=== PATIENT | male | born 1985 | race Caucasian/White ===

== ENCOUNTER 2017-10-26 21:54 | Observation (INO) ==
--- NOTE | 2017-10-26 22:37 | Emergency Department Note ---
Addendum entered and electronically signed by Sera Smalls DO 10/27/17 00:10: Due to the symptomatic PVCs and possibility of prolonged QT, I gave the patient 2 g of magnesium. Original Note: Disposition Clinical Impression: Palpitations, PVC (premature ventricular contraction), Prolonged Q-T interval on ECG Disposition: Admitted As Inpatient Condition: Good Time of Disposition: 00:09 Arrhythmia/Palpitations HPI - General Chief Complaint: ED Arrhythmia/Palpitations Stated Complaint: palpitations Time Seen by Provider: 10/26/17 22:04 Source: patient Limitations: no limitations Nursing Notes Reviewed: Yes Vital Signs Reviewed: Yes - History of Present Illness HPI Narrative: Patient is a 32-year-old male who presents to [facility] ED with a chief complaint of palpitations. States he has felt this over the last few days approximately 50-60 times today. States he has had this in the past but only occasionally. States he did recently undergo alcohol detoxification and has been exercising more to lose weight and limiting his calorie intake. Also states he was recently started on Seroquel and Buspar. Denies any nausea, vomiting, fever or chills. No chest pain or difficulty breathing. No abdominal pain, problems with urination or bowel movements. Pt Subjective Complaint: palpitations Onset (ago): day(s) Duration: intermittent Severity: moderate Context: occurred during rest, occurred during exertion Associated symptoms: Reports: denies other symptoms. Denies: chest pain, shortness of breath, syncope, nausea, vomiting, cough - Related Data Home Medications Medication Instructions Recorded Confirmed Lisinopril [Zestril] 40 mg PO DAILY 10/26/16 10/27/17 Atorvastatin [Lipitor] 40 mg PO DAILY 10/26/17 10/27/17 Buspirone HCl [Buspar] 15 mg PO PRN PRN 10/26/17 10/27/17 Quetiapine Fumarate [Seroquel] 100 mg PO HS 10/26/17 10/27/17 Allergies Allergy/AdvReac Type Severity Reaction Status Date / Time Erythromycin Base Allergy Hives Verified 10/26/17 19:07 All systems ED: reviewed and negative except as stated. Past Medical History - Past Medical History Attestation: Yes The following information was validated with the patient. Source: patient Medical history: Reports: hyperlipidemia, hypertension Psychiatric history: Reports: anxiety - Social History Smoking Status: Current every day smoker Smokeless Tobacco Status: No Alcohol use: Reports: none Drug use: Reports: none Physical Exam - General Limitations: no limitations General appearance: alert - Head Head exam: atraumatic, normocephalic, normal inspection - Eye Eye exam: Present: normal appearance, EOMI - ENT ENT exam: normal exam, normal oropharynx, mucous membranes moist - Neck Neck exam: Present: normal inspection, full ROM, trachea midline - Chest Chest inspection: Present: normal inspection, symmetric chest wall rise - Respiratory Respiratory exam: Present: normal lung sounds bilaterally - Cardiovascular Cardiovascular exam: Present: regular rate, normal rhythm, normal heart sounds - Abdominal Exam Abdominal exam: Present: soft, Non-Tender. Absent: tenderness, distention, guarding, rebound, rigidity - Extremities Exam Extremities exam: Present: normal inspection, full ROM. Absent: tenderness, pedal edema - Back Exam Back exam: Present: normal inspection, full ROM. Absent: tenderness - Neurological Exam Neurological exam: Present: alert, oriented X3 - Psychiatric Psychiatric exam: Present: normal affect, normal mood - Skin Skin exam: Present: warm, dry, intact, normal color Course Course Narrative: Patient seen and examined. Palpitations. Patient has PVCs in accordance with these palpitations that he is feeling. Since he has had dietary changes, we will go ahead and order some lab work. EKG and chest x-ray were done at the urgent care. Repeat EKG here shows no changes. - Reevaluation(s) Reevaluation #1: Lab work appears unremarkable. The EKG did show some signs of prolonged QT. This may be involving the UA, however the QTC is 495 when calculated out. I discussed these concerns with the sr. manager corporate communications Dr. Neal. Recommends admission for cardiac monitoring and cessation of the Seroquel. States that they can be consulted by the hospitalist if needed. I discussed with hospitalist Dr. Pena who has accepted patient for admission. Time: 00:08 Vital Signs Temperature 98.0 F 10/26/17 21:58 Pulse Rate 98 10/26/17 21:58 Respiratory Rate 16 10/26/17 21:58 Blood Pressure 153/89 10/26/17 21:58 O2 Sat by Pulse Oximetry 100 10/26/17 21:58 Temperature 98.0 F 10/26/17 21:58 Pulse Rate 63 10/27/17 00:04 Respiratory Rate 20 10/27/17 00:04 Blood Pressure 136/86 10/27/17 00:04 O2 Sat by Pulse Oximetry 95 10/27/17 00:04 Oxygen Delivery Oxygen Delivery Room Air Arrhythmia/Palpitations - Medical Records Medical records reviewed: Yes I reviewed the patient's medical records. - Lab Data Lab results reviewed: Yes I reviewed the patient's lab results. Result diagrams: 10/26/17 22:44 10/26/17 22:44 Lab Results 10/26/17 10/26/17 10/26/17 Range/Units 22:15 22:15 22:44 WBC 7.2 (4.3-11.1) K/mcL RBC 4.67 (4.19-5.50) M/mcL Hgb 13.7 (12.9-16.9) g/dL Hct 40.5 (37.5-50.1) % MCV 86.7 (83.0-100.0) fL MCH 29.3 (28.0-33.3) pg MCHC 33.8 (31.6-35.5) g/dL RDW 12.2 (11.5-14.5) % Plt Count 325 (140-400) K/mcL MPV 9.9 (9.4-12.4) fL Immature Gran % 0.4 (0-4) % Seg Neutrophils % 60.3 % Lymphocytes % 31.0 % Monocytes % 6.6 % Eosinophils % 1.0 % Basophils % 0.7 % Neutrophils # 4.3 (1.6-8.9) K/mcL Lymphocytes # 2.2 (0.6-4.6) K/mcL Monocytes # 0.5 (0.0-1.3) K/mcL Eosinophils # 0.1 (0.0-0.6) K/mcL Basophils # 0.1 (0.0-0.2) K/mcL Sodium (136-145) mEq/L Potassium (3.5-5.1) mEq/L Chloride (98-107) mEq/L Carbon Dioxide (23-29) mEq/L BUN (6-20) mg/dL Creatinine (0.70-1.30) mg/dL Est GFR ( Amer) (> 60) Est GFR (Non-Af Amer) (> 60) BUN/Creatinine Ratio (6-26) Glucose (70-105) mg/dL Calculated Osmolality (280-300) Calcium (8.6-10.3) mg/dL Magnesium (1.6-2.6) mg/dL Total Bilirubin (0.3-1.0) mg/dL AST (13-39) Units/L ALT (7-52) Units/L Alkaline Phosphatase (34-104) Units/L Troponin I (< 0.04) ng/mL Serum Total Protein (6.4-8.9) g/dL Albumin (3.5-5.7) g/dL Globulin (2.4-3.5) g/dL Albumin/Globulin Ratio (1.1-2.2) TSH (0.340-5.600) mcIU/mL Urine Color Yellow (Yellow) Urine Clarity Cloudy A (Clear) Urine pH 6.0 (5.0-8.0) pH Units Ur Specific Climax 1.027 H (1.010-1.025) Urine Protein 30 H (Neg-Trace) mg/dL Urine Glucose (UA) Normal (Normal) mg/dL Urine Ketones Trace H (Negative) mg/dL Urine Blood Negative (Negative) Urine Nitrite Negative (Negative) Urine Bilirubin Negative (Negative) Urine Urobilinogen Normal (Normal) mg/dL Ur Leukocyte Esterase Negative (Negative) Urine Microscopic RBC 0-3 (0-3) per hpf Urine Microscopic WBC 0-3 (0-3) per hpf Ur Squamous Epith Cells Few (None-Few) per lpf Urine Bacteria None Seen (None-Few) per hpf Hyaline Casts None Seen (None-Few) per lpf Ur Culture Indicated? NO (NO) Urine Opiates Screen Negative (Kjsxik=727) ng/mL Ur Barbiturates Screen Negative (Zaeodt=630) ng/mL Ur Phencyclidine Scrn Negative (Cutoff=25) ng/mL Ur Amphetamines Screen Negative (Voepig=8743) ng/mL U Benzodiazepines Scrn Positive H (Vkiegx=871) ng/mL Urine Cocaine Screen Negative (Cutoff= 300) ng/mL U Marijuana (THC) Screen Negative (Cutoff = 50) ng/mL 10/26/17 10/26/17 Range/Units 22:44 22:44 WBC (4.3-11.1) K/mcL RBC (4.19-5.50) M/mcL Hgb (12.9-16.9) g/dL Hct (37.5-50.1) % MCV (83.0-100.0) fL MCH (28.0-33.3) pg MCHC (31.6-35.5) g/dL RDW (11.5-14.5) % Plt Count (140-400) K/mcL MPV (9.4-12.4) fL Immature Gran % (0-4) % Seg Neutrophils % % Lymphocytes % % Monocytes % % Eosinophils % % Basophils % % Neutrophils # (1.6-8.9) K/mcL Lymphocytes # (0.6-4.6) K/mcL Monocytes # (0.0-1.3) K/mcL Eosinophils # (0.0-0.6) K/mcL Basophils # (0.0-0.2) K/mcL Sodium 136 (136-145) mEq/L Potassium 3.9 (3.5-5.1) mEq/L Chloride 104 (98-107) mEq/L Carbon Dioxide 21 L (23-29) mEq/L BUN 14 (6-20) mg/dL Creatinine 0.89 (0.70-1.30) mg/dL Est GFR ( Amer) > 60 (> 60) Est GFR (Non-Af Amer) > 60 (> 60) BUN/Creatinine Ratio 16 (6-26) Glucose 90 (70-105) mg/dL Calculated Osmolality 282 (280-300) Calcium 10.7 H (8.6-10.3) mg/dL Magnesium 1.9 (1.6-2.6) mg/dL Total Bilirubin 0.4 (0.3-1.0) mg/dL AST 26 (13-39) Units/L ALT 48 (7-52) Units/L Alkaline Phosphatase 45 (34-104) Units/L Troponin I < 0.03 (< 0.04) ng/mL Serum Total Protein 7.7 (6.4-8.9) g/dL Albumin 5.4 (3.5-5.7) g/dL Globulin 2.3 L (2.4-3.5) g/dL Albumin/Globulin Ratio 2.3 H (1.1-2.2) TSH 2.497 (0.340-5.600) mcIU/mL Urine Color (Yellow) Urine Clarity (Clear) Urine pH (5.0-8.0) pH Units Ur Specific Climax (1.010-1.025) Urine Protein (Neg-Trace) mg/dL Urine Glucose (UA) (Normal) mg/dL Urine Ketones (Negative) mg/dL Urine Blood (Negative) Urine Nitrite (Negative) Urine Bilirubin (Negative) Urine Urobilinogen (Normal) mg/dL Ur Leukocyte Esterase (Negative) Urine Microscopic RBC (0-3) per hpf Urine Microscopic WBC (0-3) per hpf Ur Squamous Epith Cells (None-Few) per lpf Urine Bacteria (None-Few) per hpf Hyaline Casts (None-Few) per lpf Ur Culture Indicated? (NO) Urine Opiates Screen (Kqmmbr=244) ng/mL Ur Barbiturates Screen (Grdxjq=741) ng/mL Ur Phencyclidine Scrn (Cutoff=25) ng/mL Ur Amphetamines Screen (Dsesjc=6827) ng/mL U Benzodiazepines Scrn (Brjmjo=175) ng/mL Urine Cocaine Screen (Cutoff= 300) ng/mL U Marijuana (THC) Screen (Cutoff = 50) ng/mL - Radiology Data Radiology results reviewed: Yes I reviewed the patient's radiology results. - EKG Data EKG attestation: Yes I reviewed and interpreted this EKG. EKG results narrative: EKG done at 2211 shows normal sinus rhythm with a rate of [address] elevation or depression. Inverted T waves noted in leads 3 and aVF. QTC calculated at 495 which is prolonged. Attestation Statement - Attestation Attestation: I, Jeyson Jefferson MD, personally evaluated this patient and discussed their management with the resident physician. I reviewed the resident's note and agree with the documented findings, medical decision making, and plan of care. 32-year-old male who is referred here from urgent care for evaluation of palpitations which started yesterday. He has had frequent palpitations since yesterday. No prior history of these symptoms. He states that this feels like his heart pauses and then beats real hard. No dizziness or syncope. No chest pain or shortness of breath. He was seen in urgent care and had an EKG which showed some inferior T-wave inversions. The urgent care discussed with the sr. manager corporate communications, Dr. Neal, who recommended sending the patient to the emergency department for evaluation. Patient denies any drug use. He did just go through alcohol rehabilitation recently and has been on a very strict diet trying to lose weight. On examination patient is a well-developed obese male in no acute distress. He is alert and oriented 3. There is no cyanosis or diaphoresis. Chest is nontender to palpation. Breath sounds are clear and equal bilaterally. The heart regular rate and rhythm. Abdomen soft and nontender with normal bowel sounds. Labs reviewed and unremarkable. Patient had a chest x-ray at urgent care which was negative. EKG here shows sinus rhythm with a ventricular rate of 92. Nonspecific T-wave abnormality with T-wave inversion in lead 3 and aVF. No acute ST segment elevations or depressions. Dr. Smalls discussed the case with the sr. manager corporate communications, Dr. Neal. The hospitalist, Dr. Pena, was consulted and accepted admission of the patient.
[2017-10-26 22:58] LABS: Bilirubin,Urine Negative (Negative); Blood,Urine Negative (Negative); Clarity,Urine Cloudy (Clear); Color,Urine Yellow (Yellow); Glucose,Urine (UA) Normal (Normal); Ketones,Urine Trace mg/dL (Negative); Leukocyte Esterase,Urine Negative (Negative); Nitrite,Urine Negative (Negative); Protein,Urine 30 mg/dL (Neg-Trace); Specific Gravity,Urine 1.027 (1.010-1.025); Urobilinogen,Urine Normal (Normal)
[2017-10-26 23:01] LABS: Bacteria,Urine None Seen per hpf (None-Few); Hyaline Casts,Urine None Seen per lpf (None-Few); RBC,Urine 0-3 per hpf (0-3); Squamous Epithelial Cell,Urine Few per lpf (None-Few); WBC,Urine 0-3 per hpf (0-3)
[2017-10-26 23:03] LABS: Amphetamine Screen,Urine Negative ng/mL (Cutoff=1000); Barbiturate Screen,Urine Negative ng/mL (Cutoff=200); Benzodiazepines Screen,Urine Positive ng/mL (Cutoff=200); Cannabinoid Screen,Urine Negative ng/mL (Cutoff = 50); Cocaine Screen,Urine Negative ng/mL (Cutoff= 300); Opiate Screen,Urine Negative ng/mL (Cutoff=300); Phencyclidine Screen,Urine Negative ng/mL (Cutoff=25)
[2017-10-26 23:07] LABS: Basophils # 0.1 K/mcL (0.0-0.2); Basophils % 0.7 %; Eosinophils # 0.1 K/mcL (0.0-0.6); Hematocrit 40.5 % (37.5-50.1); Hemoglobin 13.7 g/dL (12.9-16.9); Immature Granulocytes % 0.4 % (0-4); Lymphocytes # 2.2 K/mcL (0.6-4.6); Mean Corpuscular HGB Conc 33.8 g/dL (31.6-35.5); Mean Corpuscular Hemoglobin 29.3 pg (28.0-33.3); Mean Corpuscular Volume 86.7 fL (83.0-100.0); Mean Platelet Volume 9.9 fL (9.4-12.4); Monocytes # 0.5 K/mcL (0.0-1.3); Monocytes % 6.6 %; Neutrophils # 4.3 K/mcL (1.6-8.9); Platelet Count 325 K/mcL (140-400); Red Blood Count 4.67 M/mcL (4.19-5.50); Red Cell Distribution Width 12.2 % (11.5-14.5); Segmented Neutrophils % 60.3 %
[2017-10-26 23:30] LABS: Troponin I < 0.03 ng/mL (< 0.04)
[2017-10-26 23:35] LABS: Alanine Aminotransferase 48 Units/L (7-52); Albumin 5.4 g/dL (3.5-5.7); Albumin/Globulin Ratio 2.3 (1.1-2.2); Alkaline Phosphatase 45 Units/L (34-104); Aspartate Amino Transferase 26 Units/L (13-39); BUN/Creatinine Ratio 16 (6-26); Bilirubin,Total 0.4 mg/dL (0.3-1.0); Blood Urea Nitrogen 14 mg/dL (6-20); Calcium 10.7 mg/dL (8.6-10.3); Carbon Dioxide 21 mEq/L (23-29); Chloride 104 mEq/L (98-107); Globulin 2.3 g/dL (2.4-3.5); Glucose 90 mg/dL (70-105); Magnesium 1.9 mg/dL (1.6-2.6); Osmolality,Calculated 282 (280-300); Potassium 3.9 mEq/L (3.5-5.1); Sodium 136 mEq/L (136-145); Total Protein 7.7 g/dL (6.4-8.9); eGFR For African Americans > 60 (> 60); eGFR For Non-African Americans > 60 (> 60)
[2017-10-27] MEDS ORDERED: Naloxone 0.4 MG/ML INJ IVP PRN (00:56)
[2017-10-27] MEDS ORDERED: *HR* LORazepam 2 MG/ML VIAL IVP PRN ×3 (00:58)
--- NOTE | 2017-10-27 01:11 | Internal Med History&Physical ---
Date of Encounter: 10/27/17 Time of Encounter: 00:30 Assessment and Plan (1) DVT prophylaxis Current visit: Yes Status: Acute Patient is young and ambulating well. Low risk for DVT. No anticoagulation indicated (2) Alcoholism Current visit: Yes Status: Acute Patient is on alcoholism withdrawal program. Continue place patient on CIWA protocol (3) Palpitations Current visit: Yes Status: Acute Patient feels palpitation. Most likely due to symptomatic PVC's. - Place patient on continuous cardiac monitoring - TSH and magnesium is within normal limits - We will place patient on echocardiogram - Hold BuSpar and Seroquel at this point because it is suspected the new medication causing multiple PVCs - Patient also complained diarrhea about one week ago, his magnesium level is at lower side. 2 g magnesium was given by ER (4) Prolonged Q-T interval on ECG Current visit: Yes Status: Acute Probably due to the new medication. Hold new medications. Follow-up EKG Internal Medicine - H&P: HPI Chief complaint: Palpitation Admitted From: Home Plans for Post Hospital Care: Home History of present illness: Mr. Franklin is a 32 year old male with history of alcoholism, hypertension present to ER for palpitation for 2 days. Patient said he feels intermittent palpitation for 2 days. Patient is on an alcoholism withdrawal program and was placed on Seroquel for 3 weeks and BuSpar for one week. Patient denies chest pain, shortness of breath. In emergency room, patient was found to sinus rhythm with multiple PVCs, QTC prolongation on EKG. Patient was admitted for further management. Patient denies suicidal or homicidal idea. Patient has diarrhea about one week ago but stopped now Past Med Surg Social Fam HX - Past Medical History Medical history: hyperlipidemia, hypertension Psychiatric history: anxiety - Social History Smoking Status: Current every day smoker Packs per day: 0.5 Smokeless Tobacco Status: No Alcohol use: none Drug use: none - Family History Father Name: Vishnu Franklin Age: 69 Family Member Ethnicity: Non- Hx Family Cardiac Disorders: Yes (heart attack, HTN, HLD) Hx Family Respiratory Disorders: No Hx Family Cancer: No Hx Family GI Disorders: No Hx Family Genitourinary Disorders: No Hx Family Endocrine Disorder: Yes (diabetes) Hx Family Musculoskeletal Disorders: No Hx Family Neuromuscular Disorders: No Hx Family Neurologic Disorders: No Hx Family HEENT Disorders: No Hx Family Autoimmune Disorders: No Hx Family Reproductive Disorders: No Hx Family Psychosocial Disorders: No Hx Family Medical Disorders: No Internal Medicine - H&P: Meds Lisinopril [Zestril] 40 mg PO DAILY 10/26/16 [History] Atorvastatin [Lipitor] 40 mg PO DAILY 10/26/17 [History] Buspirone HCl [Buspar] 15 mg PO PRN PRN 10/26/17 [History] Quetiapine Fumarate [Seroquel] 100 mg PO HS 10/26/17 [History] 3 Allergy/AdvReac Type Severity Reaction Status Date / Time Erythromycin Base Allergy Hives Verified 10/26/17 19:07 All Systems PM: A 10-system review of systems was performed and is negative for pertinent findings except as documented above in the HPI. - Constitutional Vitals: Temp Pulse Resp BP Pulse Ox 98.1 F 72 17 141/87 97 10/27/17 00:53 10/27/17 00:53 10/27/17 00:53 10/27/17 00:53 10/27/17 00:53 General appearance: Present: A&O X 3, no acute distress, answers questions appropriately - Head Head exam: Present: atraumatic, normocephalic - Eye Eye exam: Present: PERRL, conjuntiva pink, sclera anicteric Pupils: Present: PERRL - Neck Neck exam general surgery: Present: supple, trachea midline. Absent: lymphadenopathy - Respiratory Respiratory exam: Present: CTAB. Absent: accessory muscle use, rales, rhonchi, wheezes - Cardiovascular Cardiovascular exam: Present: RRR, +S1, +S2. Absent: diastolic murmur, gallop, rubs, systolic murmur - GI/Abdominal GI/Abdominal exam: Present: normal bowel sounds, soft, no peritoneal signs. Absent: distended, tenderness - Extremities Exam Extremities exam: Present: warm, radial pulses palpable and symmetrical. Absent : calf tenderness, cyanotic, pedal edema - Neurological Exam Neurological exam: Present: CN II-XII intact, oriented X3, no focal deficits. Absent: pronater drift, facial droop, speech deficit - Skin Skin exam: Present: dry, intact Internal Med - H&P Results - Labs CBC & Chem 7: 10/26/17 22:44 10/26/17 22:44
[2017-10-27 04:38] LABS: Basophils % 0.6 %; Eosinophils # 0.1 K/mcL (0.0-0.6); Eosinophils % 1.4 %; Hematocrit 41.4 % (37.5-50.1); Immature Granulocytes % 0.3 % (0-4); Lymphocytes # 2.4 K/mcL (0.6-4.6); Lymphocytes % 37.6 %; Mean Corpuscular HGB Conc 33.8 g/dL (31.6-35.5); Mean Corpuscular Hemoglobin 29.2 pg (28.0-33.3); Mean Corpuscular Volume 86.4 fL (83.0-100.0); Monocytes # 0.4 K/mcL (0.0-1.3); Monocytes % 6.8 %; Neutrophils # 3.4 K/mcL (1.6-8.9); Platelet Count 322 K/mcL (140-400); Red Blood Count 4.79 M/mcL (4.19-5.50); Red Cell Distribution Width 12.3 % (11.5-14.5); Segmented Neutrophils % 53.3 %
[2017-10-27 04:57] LABS: BUN/Creatinine Ratio 14 (6-26); Blood Urea Nitrogen 13 mg/dL (6-20); Calcium 10.3 mg/dL (8.6-10.3); Carbon Dioxide 24 mEq/L (23-29); Chloride 103 mEq/L (98-107); Chol/HDL Ratio 3.4 (0-4.9); Cholesterol 126 mg/dL (< 200); Glucose 93 mg/dL (70-105); HDL Cholesterol 37 mg/dL (40-59); LDL Cholesterol,Calculated 61 mg/dL (0-99); Magnesium 2.5 mg/dL (1.6-2.6); Osmolality,Calculated 280 (280-300); Potassium 4.1 mEq/L (3.5-5.1); Sodium 135 mEq/L (136-145); Triglycerides 140 mg/dL (< 150); eGFR For African Americans > 60 (> 60); eGFR For Non-African Americans > 60 (> 60)
[2017-10-27] MEDS ORDERED: Lisinopril 20 MG TABLET PO SCH (09:00)
--- NOTE | 2017-10-27 12:51 | Cardiology Consult Note ---
Date of Encounter: 10/27/17 Time of Encounter: 12:42 Assessment and Plan (1) PVC (premature ventricular contraction) Current Visit: Yes Status: Acute Possibly medication induced versus polysubstance abuse as patient has tested positive for benzodiazepines. Recovering from alcohol abuse as well. Echocardiogram pending. Potential outpatient stress test to rule out ischemia driven however patient asymptomatic denying chest pain or dyspnea on exertion. Continue to monitor QTC on serial EKGs and hold Seroquel. Holding Seroquel and prescribed alternatives as per primary team. Discussion w patient/family: The assessment and plan as outlined above was discussed with the patient and/or family members who expressed understanding and agreement. All questions were answered. Thank you for involving us in the care of your patient. Please call with any questions. History of Present Illness Consult date: 10/27/17 Consult reason: PVCs Chief complaint: Palpitation History of present illness: Mr. Franklin is a 32 year old male with no previous cardiac history, presents with palpitations confirmed to be PVCs on telemetry coinciding with his symptoms. He states this started approximately 2 weeks ago after starting both Seroquel and BuSpar. He also tested positive for benzodiazepines on a drug screen. He denies any chest pain, shortness of breath, descensus, orthopnea, PND, presyncope or syncope He has been fairly active at his job with no symptoms during exertion of either shortness of breath or chest pain. He denies increased excessive intake of caffeinated beverages or [id number] supplements. He is a recent recovering from alcohol abuse. An echocardiogram is pending. His QTC has improved. Would recommend continuing to hold Seroquel and BuSpar with possibly prescribing alternatives. Past Med Surg Social Fam HX - Past Medical History Medical history: hyperlipidemia, hypertension Psychiatric history: anxiety - Social History Smoking Status: Current every day smoker Packs per day: 0.5 Smokeless Tobacco Status: No Alcohol use: none Drug use: none - Family History Father Name: Vishnu Franklin Age: 69 Family Member Ethnicity: Non- Hx Family Cardiac Disorders: Yes (heart attack, HTN, HLD) Hx Family Respiratory Disorders: No Hx Family Cancer: No Hx Family GI Disorders: No Hx Family Genitourinary Disorders: No Hx Family Endocrine Disorder: Yes (diabetes) Hx Family Musculoskeletal Disorders: No Hx Family Neuromuscular Disorders: No Hx Family Neurologic Disorders: No Hx Family HEENT Disorders: No Hx Family Autoimmune Disorders: No Hx Family Reproductive Disorders: No Hx Family Psychosocial Disorders: No Hx Family Medical Disorders: No Medications and Allergies Lisinopril [Zestril] 40 mg PO DAILY 10/26/16 [History] Atorvastatin [Lipitor] 40 mg PO DAILY 10/26/17 [History] Buspirone HCl [Buspar] 15 mg PO PRN PRN 10/26/17 [History] Quetiapine Fumarate [Seroquel] 100 mg PO HS 10/26/17 [History] 3 Allergy/AdvReac Type Severity Reaction Status Date / Time Erythromycin Base Allergy Hives Verified 10/26/17 19:07 All Systems Review: The remainder of the systems were reviewed and are negative Physical Examination Vital Signs, Last 4 Hours Temp Pulse Resp BP Pulse Ox 10/27/17 12:38 97.5 F L 79 18 141/69 96 General: Conversant, No Apparent Distress HEENT: Atraumatic, Normocephaly, Mucus Membranes Moist Neck: No JVD, Normal carotid pulses Cardiac: Reg Rate and Rhythm, Normal S1 and S2, No Murmur Lungs: Normal Breath Sounds, No Wheeze, Rales, Rhonchi Neuro: Alert and responsive, No focal deficits noted Abdomen: Soft, Non-Tender Skin: No rashes noted on visualized skin Musculoskeletal: No Chest Wall Tenderness Extremities: No Clubbing, No Cyanosis, No Edema, Normal Pulses Results 10/27/17 04:11 10/27/17 04:11 Lab Results 10/27/17 10/27/17 04:11 04:11 WBC 6.3 Hgb 14.0 Hct 41.4 Plt Count 322 Sodium 135 L Potassium 4.1 Chloride 103 Carbon Dioxide 24 BUN 13 Creatinine 0.96 Glucose 93 Calcium 10.3 Magnesium 2.5 Consult Discharge Plan - Plan Referrals: Marcio Mancilla MD [Primary Care Provider] -
[2017-10-27] MEDS ORDERED: Perflutren Lipid Microsphere 1.3 ML in 0.9 % Sodium Chloride 8.7 ML IVP ONE (13:48)
[2017-10-27 17:20] VITALS: BP 128/73
--- NOTE | 2017-10-27 18:15 | Discharge Summary ---
- NOTES TO OUTPATIENT PROVIDER Notes to Outpatient Provider: Follow up with PCP in 2-3 days after discharge. Put seroquel and buspar on allergy list (QT prolongation). Address long-term management of insomnia and anxiety. Adjust beta nery as necessary. Follow up with cardiology as directed. Orders not resulted at time of discharge: Pending orders 10/27/17 06:00 ECG 12 lead ECG [ECG] AM 0600 Date of Encounter: 10/27/17 Time of Encounter: 18:12 - Discharge Diagnosis (1) Palpitations Priority: Primary Status: Resolved (2) Prolonged Q-T interval on ECG Priority: Secondary Status: Resolved (3) Alcoholism Priority: Secondary Status: Chronic (4) DVT prophylaxis Priority: Secondary Status: Acute Hospital course: Mr. Franklin is a 32 year old male admitted for palpitations and QT prolongation. He was admitted for observation to general medical floor. Buspar and seroquel were held. Repeat EKG in AM showed normalization of QT interval. Palpitations had resolved on the day of discharge. Cardiology was consulted and saw patient. They started him on metoprolol 12.5 mg BID. He tolerated this well. He was prescribed seroquel recently for insomnia and buspar recently for anxiety. These medications will be added to his allergy list. He will seek OTC treatment for insomnia and then address with PCP if insufficient. He will follow up with PCP and psychiatrist in regards to better management of anxiety. Beta nery may help with anxiety symptoms. He will follow up with PCP in 2-3 days after discharge. PCP can adjust dose based on BP. He will follow up with cardiology as directed. Patient has met maximum benefit of this hospitalization and will be discharged home in stable condition. Discharge discussed with: patient, family, nurse - Time Spent with Patient Total time spent providing and/or coordinating discharge services: Less than 30 minutes - Discharge Medications Prescriptions: Metoprolol [Lopressor] 12.5 mg PO BID 7 Days #14 tablet Home Medications: Lisinopril [Zestril] 40 mg PO DAILY 10/26/16 [History] Atorvastatin [Lipitor] 40 mg PO DAILY 10/26/17 [History] Metoprolol [Lopressor] 12.5 mg PO BID 7 Days #14 tablet 10/27/17 [Rx] Allergies/Adverse Reactions: 3 Allergy/AdvReac Type Severity Reaction Status Date / Time Erythromycin Base Allergy Hives Verified 10/26/17 19:07 Buspirone [From BuSpar] AdvReac Palpitation Verified 10/27/17 18:22 s quetiapine [From Seroquel] AdvReac Palpitation Verified 10/27/17 18:22 s Date of admission: 10/27/17 00:15 Primary care physician: Marcio Mancilla MD Consults: 10/27/17 01:22 Consult to Cardiology [CONS] Routine Comment: Consulting Provider: Cardiology Marybel Reason for Consult: palpitation Call Completed: No Discharging clinician: David Valle Anticipated date of discharge: 10/27/17 - Constitutional Vitals: Temp Pulse Resp BP Pulse Ox 98.1 F 58 18 128/73 94 10/27/17 17:16 10/27/17 17:16 10/27/17 17:16 10/27/17 17:16 10/27/17 17:16 General appearance: Present: cooperative, A&O X 3, pleasant, no acute distress, answers questions appropriately - Respiratory Respiratory exam: Present: CTAB. Absent: accessory muscle use, rales, rhonchi, wheezes Additional comments: Normal WOB - Cardiovascular Cardiovascular exam: Present: RRR, +S1, +S2. Absent: diastolic murmur, gallop, rubs, systolic murmur Additional comments: No BLE edema - GI/Abdominal GI/Abdominal exam: Present: normal bowel sounds, soft. Absent: distended, hepatomegaly, mass, splenomegaly, tenderness - Psychiatric Psychiatric exam: Present: normal affect, normal mood. Absent: anxious, depressed - Skin Skin exam: Present: dry, intact, warm. Absent: cyanosis, rash - Patient Status Disposition: Home, Self-Care Condition: Good Functional capacity at discharge: independent ambulation Overall status at discharge: patient is back to baseline - Discharge Instructions Follow Up With: Marcio Mancilla MD [Primary Care Provider] - Additional Instructions: Follow up with PCP in 2-3 days after discharge. Put seroquel and buspar on allergy list (QT prolongation). Address long-term management of insomnia and anxiety. Adjust beta nery as necessary. Follow up with cardiology as directed. - Diet and Activity Activity: resume usual activities as tolerated Diet: advance to your usual diet - VTE Documentation of Mechanical Device: Intermittent pneumatic compression device
--- NOTE | 2017-10-30 19:09 | Electrocardiograph Report ---
[address] [address] Test Date: 2017-10-26 Pat Name: Juan Diego Franklin Department: [id number] Room: 2NE16 Gender: M Multicultural Internship: [id number] : 1985 Requested By: Sera Smalls Order Number: [id number] Reading MD: Bryan Womack MD Measurements Intervals [place] Rate: 84 P: 21 VA: 142 QRS: 22 QRSD: 103 T: -7 QT: 326 QTc: 366 Interpretive Statements SINUS RHYTHM WITH SINUS ARRHYTHMIA Electronically Signed On 10-30-2017 19:08:10 EDT by Bryan Womack MD
--- NOTE | 2017-10-30 19:11 | Electrocardiograph Report ---
[address] [address] Test Date: 2017-10-26 Pat Name: YAZAN LOVELL Department: 103 Room: 2NE16 Gender: Male Certified Alcohol Drug Counselor: ROSANNA : 1985 Requested By: David Valle Order Number: [id number] Reading MD: Bryan Womack MD Measurements Intervals [place] Rate: 92 P: 37 CA: 133 QRS: 43 QRSD: 102 T: -4 QT: 317 QTc: 367 Interpretive Statements SINUS RHYTHM WITH SINUS ARRHYTHMIA BASELINE ARTIFACT COMPLICATES ACCURATE INTERPRETATION Electronically Signed On 10-30-2017 19:10:30 EDT by Bryan Womack MD
== END 2017-10-27 19:05 | disposition home or self-care (01) ==
LOC: EMEROO 21:54 → 2NENU 21:54
PROVIDERS: ADMIT Hospitalist; ATTEND Family Medicine